=== PATIENT | female | born 1995 | race Caucasian/White ===

== ENCOUNTER 2017-12-10 10:26 | Emergency (ER) | payer MEDICAID ==
[2017-12-10] MEDS: LORAZEPAM 2 MG INJ IV (10:57)
[2017-12-10 11:09] LABS: ADD MAN DIFF? NO
[2017-12-10 11:13] LABS: WHITE BLOOD COUNT 7.1 10^3/ul (4.8-10.8)
[2017-12-10 11:13] LABS: BASOPHILS % 0.3 % (0.0-2.0); EOSINOPHILS # 0.1 10^3/ul (0.0-0.5); EOSINOPHILS % 1.1 % (0.0-7.0); HEMATOCRIT 39.2 % (37.0-47.0); HEMOGLOBIN 12.9 g/dl (12.0-16.0); LYMPHOCYTES % 27.9 % (15.0-51.0); MEAN CORPUSCULAR HEMOGLOBIN 29.8 pg (29.0-33.0); MEAN CORPUSCULAR HGB CONC 32.9 g/dl (32.0-37.0); MEAN CORPUSCULAR VOLUME 90.5 fl (82.0-101.0); MEAN PLATELET VOLUME 9.1 fl (7.4-10.4); MONOCYTE # 0.6 10^3/ul (0.3-0.9); MONOCYTES % 7.7 % (0.0-11.0); NEUTROPHIL # 4.4 10^3/ul (1.6-7.5); NEUTROPHILS % 62.6 % (39.0-77.0); PLATELET COUNT 354 10^3/UL (140-415); RED BLOOD COUNT 4.33 10^6/ul (4.20-5.40); RED CELL DISTRIBUTION WIDTH 12.2 % (11.5-14.5)
[2017-12-10 11:27] LABS: ALANINE AMINOTRANSFERASE 42 IU/L (13-69); ALBUMIN 4.7 g/dl (3.3-4.9); ALBUMIN/GLOBULIN RATIO 1.56; ALKALINE PHOSPHATASE 114 IU/L (42-121); ANION GAP 17 (8-16); ASPARTATE AMINO TRANSFERASE 30 IU/L (15-46); BILIRUBIN,INDIRECT 0.3 mg/dl (0-1.1); BILIRUBIN,TOTAL 0.3 mg/dl (0.2-1.3); BLOOD UREA NITROGEN 13 mg/dl (7-20); CALCIUM 9.1 mg/dl (8.4-10.2); CARBON DIOXIDE 19 mmol/L (21-31); CHLORIDE 110 mmol/L (97-110); CREATININE 0.77 mg/dl (0.44-1.00); GLUCOSE 99 mg/dl (70-220); POTASSIUM 4.1 mmol/L (3.5-5.1); SODIUM 142 mmol/L (135-144); TOTAL PROTEIN 7.7 g/dl (6.1-8.1)
[2017-12-10 11:31] LABS: INR 1.02; PARTIAL THROMBOPLASTIN TIME 26.2 Sec (25.0-35.0); PROTIME 13.5 Sec (11.9-14.9); PT RATIO 1.1
[2017-12-10] MEDS: LEVETIRACETAM 1000 MG (PMX) 100 ML IVPB (12:03)
[2017-12-10] MEDS: SOD CHLORIDE 0.9% 1,000 ML IV (13:02)
== END 2017-12-10 14:22 | disposition home or self-care (01) ==
LOC: E/R 10:26
DX: R56.9 Unspecified convulsions (principal); R40.2252 Coma scale, best verbal response, oriented, at arrival to emergency department; S06.0X0A Concussion without loss of consciousness, initial encounter; R40.2142 Coma scale, eyes open, spontaneous, at arrival to emergency department; R40.2362 Coma scale, best motor response, obeys commands, at arrival to emergency department; R06.02 Shortness of breath; W18.09XA Striking against other object with subsequent fall, initial encounter; Y92.9 Unspecified place or not applicable
CPT/HCPCS: 70450; 80053; 85025; 85610; 85730; 93005; 96374; 96375; 99285-25

== ENCOUNTER 2018-02-15 20:25 | Emergency (ER) | payer MEDICAID ==
[2018-02-15] MEDS: LEVETIRACETAM 1000 MG (PMX) 100 ML IVPB (21:42)
== END 2018-02-15 23:11 | disposition home or self-care (01) ==
LOC: E/R 20:25
DX: G40.909 Epilepsy, unspecified, not intractable, without status epilepticus (principal)
CPT/HCPCS: 70450; 96365; 99285-25

== ENCOUNTER 2018-08-04 17:10 | Emergency (ER) | payer SELFPAY, MEDICAID | END 2018-08-04 21:00 | disposition left against medical advice (07) | LOC: FTE 17:10 | DX: Z53.21 Procedure and treatment not carried out due to patient leaving prior to being seen by health care provider (principal) ==